=== PATIENT | male | born 1975 | race Two or more races ===

== ENCOUNTER → 2024-03-24 11:23 | Outpatient (REF) | payer OTHER, SELFPAY ==
[2024-03-24 19:33] LABS: Hepatitis B Surface Antibody Negative
[2024-03-24 19:34] LABS: Rubella Positive
[2024-03-26 07:27] LABS: Quantiferon NIL 0.11 IU/mL; Quantiferon Plus TB1 minus NIL 0.05 IU/mL (<=0.34); Quantiferon Plus TB2 minus NIL 0.04 IU/mL (<=0.34); Quantiferon TB Gold Plus Negative (Negative)
== END ==
LOC: OHS 11:23
PROVIDERS: ATTENDING PHYSICIAN Nurse Practitioner Family
DX: Z23 Encounter for immunization (principal)
CPT/HCPCS: 36415; 86480; 86706; 86735; 86762; 86765; 86787